=== PATIENT | female | born 1980 | race Two or more races ===

== ENCOUNTER 2025-01-28 12:16 | Emergency (ER) | payer OTHER ==
[~2025-01-28] VITALS: Ht 160 cm; Wt 63.5 kg
[2025-01-28] MEDS ORDERED: TOPROL XL25 M1 PO (12:22)
[2025-01-28] MEDS ORDERED: TOPROL XL100 M1 PO (12:23)
[2025-01-28] MEDS ORDERED: BUTALB/ACETAMINOPHEN/CAFFEINE 1 TAB TABLET PO STA (12:41)
[2025-01-28] MEDS ORDERED: ONDANSETRON HCL 2 MG/ML VIAL IV STA (12:41)
[2025-01-28] MEDS ORDERED: RINGERS SOLUTION,LACTATED 1,000 ML IV STA (12:41)
[2025-01-28] MEDS ORDERED: KETOROLAC TROMETHAMINE 15 MG VIAL IV STA (12:41)
[2025-01-28 13:24] LABS: BASO % 0.2 % (0.1-1.2); EOS # 0.00 (0.04-0.54); EOS % 0.0 % (0.7-7.0); LYMPH # 0.87 (1.18-3.74); LYMPH % 9.3 % (19.3-53.1); MEAN PLATELET VOLUME 10.40 fl (9.4-12.4); MONO # 0.13 (0.24-0.82); MONO % 1.4 % (4.7-12.5); NEUT # 8.28 (1.56-6.13); NEUT % 88.9 % (34.0-71.1); RED CELL DISTRIBUTION WIDTH 12.3 % (11.6-14.4)
[2025-01-28 13:57] LABS: ALT/SGPT 28.0 U/L (12-78); AST/SGOT 9.0 U/L (15-37); BILIRUBIN TOTAL 0.48 mg/dL (0.3-1.2); BUN CREA RATIO 16.0 (7.0-25.0); CREATININE SERUM 0.57 mg/dL (0.55-1.02); GFR 116.32; GLOBULINA 3.7 G/DL (2.4-3.5); GLUCOSE FASTING 112.0 mg/dL (65-100); OSMOLALITY SERUM 284.0 MOSM/KG (275-295)
== END 2025-01-28 17:13 | disposition home or self-care (01) ==
LOC: ER 12:16
PROVIDERS: General Practice
DX: G44.89 Other headache syndrome (principal); G97.1 Other reaction to spinal and lumbar puncture